=== PATIENT | female | born 1995 | race American Indian/Alaskan Native ===

== ENCOUNTER 2021-08-15 03:19 | Emergency (ER) | payer SELFPAY ==
[2021-08-15] MEDS ORDERED: dexAMETHasone 4 MG/ML VIAL IM ONE (03:48)
[2021-08-15] MEDS ORDERED: FAMOTIDINE 20 MG TAB PO ONE (03:48)
[2021-08-15 05:21] VITALS: BP 113/76
--- NOTE | 2021-08-15 05:47 | Emergency Department Report ---
HPI - General Chief Complaint: Allergic Reaction Time Seen by Provider: 08/15/21 03:48 ED Past Medical Hx - Past Medical History Previous Medical History?: No - Surgical History Past Surgical History?: No - Medications Home Medications: Home Medications Medication Instructions Recorded Confirmed Last Taken Type Famotidine [Pepcid] 40 mg PO DAILY #14 tablet 08/15/21 Unknown Rx hydrOXYzine HCL [Atarax] 25 mg PO Q6HR PRN #20 tablet 08/15/21 Unknown Rx predniSONE [Deltasone] 20 mg PO QDAY #5 tab 08/15/21 Unknown Rx ED Review of Systems ROS: Stated complaint: ITCHY THROAT/WATERY EYES/ALLERGIC REACTION Other details as noted in HPI Physical Exam - Physical Exam Vital Signs: Vital Signs 08/15/21 05:21 Pulse Rate 74 Respiratory 14 Rate Blood Pressure 113/76 [Left] O2 Sat by Pulse 98 Oximetry ED Course Vital Signs 08/15/21 05:21 Pulse Rate 74 Respiratory 14 Rate Blood Pressure 113/76 [Left] O2 Sat by Pulse 98 Oximetry Critical care attestation.: If time is entered above; I have spent that time in minutes in the direct care of this critically ill patient, excluding procedure time. ED Disposition Disposition: 01 HOME / SELF CARE / HOMELESS Condition: Stable Instructions: How to Use an Auto-Injector Pen, Allergies, Adult Prescriptions: hydrOXYzine HCL [Atarax] 25 mg PO Q6HR PRN #20 tablet PRN Reason: Itching predniSONE [Deltasone] 20 mg PO QDAY #5 tab Famotidine [Pepcid] 40 mg PO DAILY #14 tablet Referrals: [facility] [Provider Group] - 3-5 Days
== END 2021-08-15 05:40 | disposition home or self-care (01) ==
LOC: ED 03:19
DX: T78.40XA Allergy, unspecified, initial encounter (principal); X58.XXXA Exposure to other specified factors, initial encounter; Z91.09 Other allergy status, other than to drugs and biological substances
CPT/HCPCS: 96372; 99283; J1100